=== PATIENT | male | born 1975 | race African-American/Black ===

== ENCOUNTER 2017-01-05 23:00 | Emergency (ER) | payer OTHER ==
[2017-01-05] MEDS ORDERED: NO MEDICATIONS (23:56)
[2017-01-06 00:38] LABS: INFLUENZA A NEG (NEG); INFLUENZA B NEG (NEG)
== END 2017-01-06 02:05 | disposition home or self-care (01) ==
LOC: SED 23:00
PROVIDERS: Emergency Medicine
DX: J02.0 Streptococcal pharyngitis (principal)
CPT/HCPCS: 87804; 87880; 99283